=== PATIENT | female | born 1930 | race Caucasian/White ===

== ENCOUNTER 2017-11-27 18:57 | Emergency (ER) | payer OTHER ==
[~2017-11-27] VITALS: Ht 162.6 cm; Wt 68.0 kg
[~2017-11-27 18:57] MED LIST: ASPIR 8181 MG PO; COLACE100 MG PO; COUMADIN; COUMADIN 2.5MG2.5 M1 PO; COUMADIN 5 MG TA5 M1 PO; FOLIC ACID 40400 MCG PO; FOLIC ACID0.8 MG PO; HYDROCODONE-AP1 EAC6 PO; LISINOPRIL10 MG PO; LOVENOX40 MG/0.4 SQ; METHOTREXATE 22.5 MG; MIRALAX17 GM PO; ONDANSETRON HCL4 M2 PO; OXYCODONE HCL 55 MG PO; OXYCONTIN10 M1 PO; TYLENOL325 MG PO
[2017-11-27] MEDS ORDERED: PRESERVISION A1 EACH (19:10)
[2017-11-27 19:34] LABS: ABSOLUTE BASOPHILS 0.1 thou/uL (0.0-0.2); ABSOLUTE EOSINOPHILS 0.1 thou/uL (0.0-0.7); ABSOLUTE LYMPHOCYTES 2.4 thou/uL (0.8-5.3); ABSOLUTE MONOCYTES 0.7 thou/uL (0.0-1.2); ABSOLUTE NEUTROPHILS 7.4 thou/uL (1.6-8.1); BASOPHILS 0.5 %; EOSINOPHILS 1.1 %; HEMATOCRIT 41.1 % (37.0-47.0); HEMOGLOBIN 13.8 gm/dL (12.0-15.0); LYMPHOCYTES 22.2 %; MCH 32.5 pg (26.0-34.0); MCHC 33.5 g/dL (28.0-37.0); MONOCYTES 6.6 %; MPV 7.8 fl. (7.2-11.1); NUCLEATED RBCS 0 /100WBC; PLATELET COUNT* 229 thou/uL (150-400); POLYS 69.6 %; RBC 4.24 mil/uL (4.20-5.00); RDW-CV 15.5 % (10.5-14.5); WBC 10.6 thou/uL (4.0-11.0)
[2017-11-27 19:41] LABS: ANION GAP 7 mmol/L (7-16); BUN 14 mg/dL (7-18); CALCIUM 9.3 mg/dL (8.5-10.1); CHLORIDE 101 mmol/L (98-107); CO2 29 mmol/L (21-32); GLUCOSE 117 mg/dL (70-99); SODIUM 137 mmol/L (136-145)
[2017-11-27 19:48] LABS: ALBUMIN 3.9 g/dL (3.4-5.0); ALKALINE PHOSPHATASE 74 U/L (46-116); LIPASE 243 U/L (73-393); SGOT 32 U/L (15-37); SGPT 24 U/L (30-65); TOTAL BILIRUBIN 0.2 mg/dL (<0.1-1.0); TOTAL PROTEIN 7.6 g/dL (6.4-8.2); TROPONIN-I LEVEL <0.06 ng/mL (<0.06)
[2017-11-27 20:21] LABS: URINE BILIRUBIN NEGATIVE (Negative); URINE BLOOD TRACE (Negative); URINE CLARITY CLEAR; URINE COLOR YELLOW; URINE GLUCOSE-RANDOM NEGATIVE (Negative); URINE KETONES NEGATIVE (Negative); URINE LEUKOCYTES-REFLEX NEGATIVE (Negative); URINE NITRITE-REFLEX NEGATIVE (Negative); URINE PROTEIN NEGATIVE (Negative); URINE SPECIFIC GRAVITY <= 1.005 (1.005-1.030); URINE UROBILINOGEN 0.2 E.U./dl (0.2-1.0)
[2017-11-27] MEDS ORDERED: ZOFRAN ODT4 MG SUBLING (20:41)
[2017-11-27] MEDS ORDERED: FLAGYL500 MG PO (20:41)
[2017-11-27] MEDS ORDERED: CIPROFLOXACIN500 M1 PO (20:41)
[2017-11-27] MEDS ORDERED: ULTRAM 50MG TAB50 MG PO (20:41)
[2017-11-27 21:09] VITALS: BP 133/56
--- NOTE | 2017-11-28 17:09 | EKG ---
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: Cathie MITCHELL : 1930 Requested By: Jan Santana Order Number: [id number] MD: Jimbo Vigil Measurements Intervals [place] Rate: 75 P: 5 OR: 209 QRS: -28 QRSD: 91 T: 43 QT: 416 QTc: 465 Interpretive Statements Sinus rhythm Borderline left axis deviation Low voltage, precordial leads Compared to ECG 03/31/2015 15:42:14 Low QRS voltage now present Electronically Signed On 11-28-2017 17:09:30 CDT by Jimbo Vigil [email or web address] <ELECTRONICALLY SIGNED> By: Jimbo Vigil MD, [facility] 11/28/17 1709 25 25 Jimbo Vigil MD, [facility] /EPI
== END 2017-11-27 21:11 | disposition home or self-care (01) ==
LOC: M.ERS 18:57
PROVIDERS: Family Medicine
DX: K57.92 Diverticulitis of intestine, part unspecified, without perforation or abscess without bleeding (principal); I10 Essential (primary) hypertension; M19.90 Unspecified osteoarthritis, unspecified site; L40.50 Arthropathic psoriasis, unspecified; Z88.8 Allergy status to other drugs, medicaments and biological substances; Z86.73 Personal history of transient ischemic attack (TIA), and cerebral infarction without residual deficits